=== PATIENT | female | born 1975 | race Caucasian/White ===

== ENCOUNTER 2016-11-11 16:41 | Observation (INO) | payer OTHER ==
[2016-11-11] MEDS ORDERED: NITROGLYCERIN OINT 1 INCH/GM PACKET TOPICAL STA (17:10)
[2016-11-11] MEDS ORDERED: ASPIRIN 81 MG CHEW PO STA (17:10)
[2016-11-11] MEDS ORDERED: LORazepam 2 MG/ML SYRINGE IV STA (17:11)
--- NOTE | 2016-11-11 17:15 | ED ---
Chest Pain HPI - General Chief Complaint: Chest Pain Stated Complaint: Chest Pain Time Seen by Provider: 11/11/16 16:59 Source: patient Mode of arrival: wheelchair Limitations: no limitations - History of Present Illness Initial Comments: This 41-year-old female presents with claims chest pain which is described as a heaviness diffusely throughout her chest. The onset occurred approximate 1 day ago. She has had radiation into her left arm, neck, and jaw. She has had some shortness of breath as well. She denies any known previous cardiac or pulmonary problems. She denies any leg pain or swelling or history of DVT or PE. She denies any possibility of . She had a stress test and May 2016 which was normal per patient. She states that she does feel somewhat anxious although denies a history of anxiety. She is unsure if she is having a panic attack. No other complaints or modifying factors. - Related Data Home Medications Medication Instructions Recorded Confirmed Aspirin [Adult Low Dose Aspirin EC] 81 mg PO DAILY 11/11/16 11/11/16 Ferrous Sulfate [Feosol] 325 mg PO DAILY 11/11/16 11/11/16 Multivitamins, Thera [Multivitamin] 1 tab PO DAILY 11/11/16 11/11/16 Allergies Allergy/AdvReac Type Severity Reaction Status Date / Time No Known Allergies Allergy Verified 11/11/16 17:30 Review of Systems ROS Statement: Those systems with pertinent positive or pertinent negative responses have been documented in the HPI. ROS Other: All systems not noted in ROS Statement are negative. Past Medical History Past Medical History: Osteoarthritis (OA) History of Any Multi-Drug Resistant Organisms: None Reported Past Surgical History: No Surgical Hx Reported Additional Past Surgical History / Comment(s): wisdom teeth extraction 01/24/2016 Past Psychological History: No Psychological Hx Reported Smoking Status: Former smoker Past Alcohol Use History: None Reported Past Drug Use History: None Reported General Exam - General Exam Comments Initial Comments: GENERAL: The patient is well nourished and well hydrated. VITAL SIGNS: Heart rate, blood pressure, respiratory rate reviewed as recorded in nurse's notes. EYES: Pupils are round and reactive. Extraocular movements are intact. No conjunctival / lid redness or swelling. ENT: No external evidence of injury, swelling, or ecchymosis. Airway is patent. Throat is clear. NECK: Nontender. No swelling or evidence of injury. No subcutaneous emphysema. Trachea is midline. No thyroid mass. HEART: Regular rate and rhythm. Good peripheral pulses. LUNGS/CHEST: Breath sounds clear and equal bilaterally. No rales, rhonchi, or wheezes. No ecchymosis, subcutaneous emphysema, or tenderness. ABDOMEN: Abdomen soft without tenderness. No palpable masses or organomegaly. No peritoneal signs. No abdominal wall swelling or ecchymosis. EXTREMITIES: No extremity tenderness. Normal muscle tone and function. No thoracolumbar tenderness. No leg swelling. NEUROLOGIC: Sensation is grossly intact. Cranial nerve exam reveals face is symmetrical, tongue is midline, speech is clear. SKIN: No abrasions or ecchymosis is noted. No induration or masses noted. PSYCHIATRIC: Alert and oriented. Patient appears moderately anxious. Limitations: no limitations Course Vital Signs 11/11/16 11/11/16 11/11/16 16:47 18:52 18:57 Temperature 98 F 98.1 F Pulse Rate 77 96 86 Respiratory 18 18 15 Rate Blood Pressure 148/78 123/67 120/57 O2 Sat by Pulse 100 98 99 Oximetry Chest Pain MDM - MDM The patient was seen and examined. All diagnostics were reviewed. The EKG shows a normal sinus rhythm at a rate of 74. There is some artifact noted. No acute ST-T wave changes noted overall. The MT interval is 150, QRS duration is 94, and QTC intervals 450. The chest x-ray does not show any acute processes. The laboratory is fairly unremarkable. She states that she is feeling improved on recheck. The possibility of acute coronary syndrome certainly is possible and is felt that she benefit from admission to the hospital for further workup and treatment. The case is discussed with Dr. Lynch who is agreeable and patient is admitted to the observation unit for further treatment. Disposition Clinical Impression: Chest pain, Anxiety, Dyspnea, Unstable angina pectoris Disposition: ADMITTED IP TO THIS HOSP Condition: Fair Time of Disposition: 19:40 Decision Date: 11/11/16 Decision Time: 19:40
[2016-11-11 17:28] LABS: Basophils # (A) 0.1 k/uL (0-0.2); Basophils % (A) 1 %; CH 29.6; Eosinophils % (A) 1 %; HCT 40.2 % (34.0-46.0); HDW 2.66; HGB 13.4 gm/dL (11.4-16.0); Luc # (Auto) 0.25; Luc % (Auto) 3; Lymphocytes # (A) 2.1 k/uL (1.0-4.8); Lymphocytes % (A) 25 %; MCH 29.2 pg (25.0-35.0); MCHC 33.3 g/dL (31.0-37.0); MCV 87.4 fL (80.0-100.0); Mean Platelet Volume 6.5; Monocytes # (A) 0.4 k/uL (0-1.0); Monocytes % (A) 4 %; Neutrophils # (A) 5.7 k/uL (1.3-7.7); Neutrophils % (A) 67 %; RDW 13.3 % (11.5-15.5); WBC 8.5 k/uL (3.8-10.6); WBC (Perox) 8.42
[2016-11-11 17:43] LABS: INR 1.1 (<1.1); Prothrombin Time 10.7 sec (9.0-12.0)
[2016-11-11 17:51] LABS: ALT 36 U/L (9-52); AST 21 U/L (14-36); Alkaline Phosphatase 81 U/L (38-126); Anion Gap 12 mmol/L; Blood Urea Nitrogen 9 mg/dL (7-17); Calcium 9.6 mg/dL (8.4-10.2); Carbon Dioxide 23 mmol/L (22-30); Chloride 103 mmol/L (98-107); Creatine Kinase 98 U/L (30-135); Glucose 111 mg/dL (74-99); Magnesium 1.7 mg/dL (1.6-2.3); Non-African American GFR(MDRD) >60 (>60 ml/min/1.73 sqM); Sodium 138 mmol/L (137-145); Total Protein 7.7 g/dL (6.3-8.2)
--- NOTE | 2016-11-11 17:53 | XR ---
EXAMINATION TYPE: XR chest 2V DATE OF EXAM: 11/11/2016 5:46 PM COMPARISON: NONE HISTORY: Chest heaviness and arm pain TECHNIQUE: Frontal and lateral views of the chest are obtained. FINDINGS: Heart and mediastinum are normal. Lungs are clear. Diaphragm is normal. There are chest le ads. Bony thorax is intact. IMPRESSION: No cardiopulmonary disease.
[2016-11-11 18:03] LABS: Creatine Kinase MB 0.5 ng/mL (0.0-2.4); Troponin I <0.012 ng/mL (0.000-0.034)
[2016-11-11] MEDS ORDERED: NITROGLYCERIN SL TABS 0.4 MG TAB SUBLINGUAL PRN (19:40)
[2016-11-11] MEDS ORDERED: HEPARIN SODIUM,PORCINE 5,000 UNIT/ML 1 ML VIAL SQ STA (19:55)
[2016-11-11 21:55] VITALS: BMI 49.6
[2016-11-11] MEDS: METOPROLOL TARTRATE 25 MG TAB PO SCH ×2 (21:59→22:08)
[2016-11-11] MEDS: NITROGLYCERIN OINT 1 INCH/GM PACKET TOPICAL SCH (23:56)
[2016-11-12] MEDS ORDERED: HEPARIN SODIUM,PORCINE 5,000 UNIT/ML 1 ML VIAL SQ SCH
[2016-11-12 00:29] LABS: Creatine Kinase 73 U/L (30-135)
[2016-11-12 00:42] LABS: Creatine Kinase MB 0.4 ng/mL (0.0-2.4); Troponin I <0.012 ng/mL (0.000-0.034)
[2016-11-12] MEDS ORDERED: HEPARIN SODIUM,PORCINE 5,000 UNIT/ML 1 ML VIAL IV PRN (00:49)
[2016-11-12] MEDS ORDERED: HEPARIN SODIUM,PORCINE 5,000 UNIT/ML 1 ML VIAL IV ONE (00:49)
[2016-11-12] MEDS ORDERED: HEPARIN SODIUM,PORCINE/D5W PMX 25,000 UNIT in DEXTROSE/WATER 1 500ML.BAG IV SCH (01:00)
[2016-11-12] MEDS ORDERED: ALPRAZolam 0.25 MG TAB PO STA (02:01)
[2016-11-12] MEDS: NITROGLYCERIN OINT 1 INCH/GM PACKET TOPICAL SCH ×3 (06:44→17:35)
[2016-11-12 07:33] LABS: Cholesterol 178 mg/dL (<200); HDL Cholesterol 46 mg/dL (40-60); Triglycerides 79 mg/dL (<150)
[2016-11-12 07:38] LABS: Creatine Kinase 69 U/L (30-135)
[2016-11-12 07:51] LABS: Creatine Kinase MB 0.3 ng/mL (0.0-2.4); Troponin I <0.012 ng/mL (0.000-0.034)
[2016-11-12] MEDS ORDERED: AMINOPHYLLINE 500 MG/20 ML VIAL IV PRN (08:53)
[2016-11-12] MEDS ORDERED: REGADENOSON 0.4 MG/5 ML SYRINGE IV ONE (09:00)
--- NOTE | 2016-11-12 09:42 | CONS ---
DATE OF CONSULTATION: CHIEF COMPLAINT: Chest pain. Guerita is a 41-year-old lady without any significant past medical history who is under a lot of stress, lost her grandmother a few weeks ago. 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 Initially, she had jaw pain. Subsequently, she had chest pain, then she had left arm pain over the last 2 days. She had persistent symptoms during this hospitalization, but the symptoms have gradually resolved. EKG does not reveal acute ischemic changes. Three sets of cardiac enzymes are negative. At the time of my evaluation, she appears comfortable at rest and is free of symptoms. There is history of smoking, but she quit many years ago and there is family history of premature coronary artery disease. I reviewed her symptomatology, risk factors and talked to her about her treatment options including cardiac catheterization to evaluate her coronary anatomy versus stress testing. Understanding all of the issues, she wishes to go through a stress test and if the stress test is abnormal, she will go for cardiac cath. Past medical history is negative for hypertension, diabetes, dyslipidemia. Medications include iron, aspirin, and multivitamin. ALLERGIES: No known drug allergies. Family history is significant for premature coronary artery disease. SOCIAL HISTORY: She quit smoking many years ago. REVIEW OF SYSTEMS: HEENT is unremarkable. CARDIAC: As described above. RESPIRATORY: Negative. GI: Negative. GENITOURINARY: Negative. ALLERGY/IMMUNOLOGY: Negative. SKIN: Negative. MUSCULOSKELETAL: Significant for arthritis. PSYCHOSOCIAL: Negative. ENDOCRINE: Negative. NEUROLOGICAL: Negative. DERMA: Negative. CONSTITUTIONAL: Negative. ONCOLOGICAL: Negative. HEMATOLOGICAL: Negative. The rest of the system review is not relevant. On exam, comfortable at rest. Vital signs are stable. There is no jugular venous distention. Carotid upstroke is normal. There is no bruit. Chest exam revealed good air entry bilaterally. Heart exam reveals first and second heart sounds. No gallop. Abdomen is soft, nontender. Exam of extremities did not reveal edema. Peripheral pulses are felt. SPRINKLER INSTALLER exam did not reveal focal neurological deficits. Labs have been reviewed. Tropes are negative. ASSESSMENT: 1. Chest pain, rule out coronary artery disease. 2. Morbid obesity. PLAN: Will do a Lexiscan on her. If this is negative, she will go home.
--- NOTE | 2016-11-12 10:51 | P.HPIM ---
History of Present Illness H&P Date: 11/12/16 Chief Complaint: Chest pain This is a 41-year-old female patient of Dr. Jose Mckee with a past medical history of hypertension, osteoarthritis primary generalized. Patient states she had a previous stress test done in about May 2016 at [facility]. She states that she changed doctors and her doctor did not think she needed to be on cholesterol medicine or blood pressure medicine and the stress test was done and she was subsequently taken off these medications. She currently is only on aspirin and a multivitamin daily. She gives history of 2 weeks ago she had knots in the back of her calf and she did get a massage which made it better. On Wednesday she had onset of jaw pain that started when she was sleeping. She states it felt like she was punched in the jaw and it hurt all day. On Wednesday she continued to have jaw pain and then she had pain across her chest mostly starting in the midsternal area and radiating outwards. On her way home from work she developed neck and arm pain while driving. She states she had a little shortness of breath and she does have some pressure in her chest with exertion. She presented to [facility] emergency center. EKG did not show any acute ST-T wave changes. Chest x-ray showed no acute cardiopulmonary disease. Lab work all within normal limits except for random blood sugar of 111. Troponins of been negative on 3 draws. Triglyceride 79, cholesterol 178, LDL 116 and HDL 46. Patient was started on heparin drip, full strength aspirin , Lopressor and nitro bid and placed on selective care as an overflow for observation unit. She has been seen by valet parker and heparin drip has been discontinued and she is scheduled for stress echo today. Echocardiogram reveals EF 55-60%, trace mitral regurgitation, trace tricuspid regurgitation, moderate concentric left hypertrophy. Stress Cardiolite shows limited due to artifact. Could not exclude small area of reversible stress-induced ischemia in the inferior lateral myocardium. Patient is scheduled for heart catheterization tomorrow. Review of Systems All systems: negative Constitutional: Denies chills, Denies fever Eyes: denies blurred vision, denies pain Ears, nose, mouth and throat: Denies headache, Denies sore throat Cardiovascular: Reports chest pain, Reports dyspnea on exertion, Denies shortness of breath Respiratory: Denies cough Gastrointestinal: Denies abdominal pain, Denies diarrhea, Denies nausea, Denies vomiting Genitourinary: Denies dysuria, Denies hematuria Musculoskeletal: Denies myalgias Integumentary: Denies pruritus, Denies rash Neurological: Denies numbness, Denies weakness Psychiatric: Denies anxiety, Denies depression Endocrine: Denies fatigue, Denies weight change Past Medical History Past Medical History: Osteoarthritis (OA) History of Any Multi-Drug Resistant Organisms: None Reported Past Surgical History: No Surgical Hx Reported Additional Past Surgical History / Comment(s): wisdom teeth extraction 01/24/2016 Past Anesthesia/Blood Transfusion Reactions: No Reported Reaction Past Psychological History: No Psychological Hx Reported Smoking Status: Former smoker Past Alcohol Use History: None Reported Additional Past Alcohol Use History / Comment(s): Patient was a smoker of 2 packs per day for 20 years and quit 5 years ago. She denies any medical marijuana, marijuana or street drug use. She works as a teacher. Past Drug Use History: None Reported - Past Family History Father Family Medical History: Hyperlipidemia, Hypertension Additional Family Medical History / Comment(s): Father is alive at age 60 with history of angina. Mother Family Medical History: Hyperlipidemia, Hypertension Additional Family Medical History / Comment(s): Mother is alive at age 60 with history of hypertension, hyperlipidemia. Maternal grandmother at age 56 from a massive coronary. Brother(s) Additional Family Medical History / Comment(s): Patient has 2 brothers and one has history of hyperlipidemia, hypertension and TIA. Patient does not have any sisters. Son(s) Additional Family Medical History / Comment(s): Patient has 7 children, 2 daughters and 5 sons. One son has asthma. 2 children have ADHD. Medications and Allergies Home Medications Medication Instructions Recorded Confirmed Type Aspirin [Adult Low Dose Aspirin EC] 81 mg PO DAILY 11/11/16 11/11/16 History Ferrous Sulfate [Feosol] 325 mg PO DAILY 11/11/16 11/11/16 History Multivitamins, Thera [Multivitamin] 1 tab PO DAILY 11/11/16 11/11/16 History Allergies Allergy/AdvReac Type Severity Reaction Status Date / Time No Known Allergies Allergy Verified 11/11/16 17:30 Physical Exam Vitals: Vital Signs Temp Pulse Pulse Resp BP BP Pulse Ox 11/12/16 04:00 97.1 F L 81 20 134/70 99 11/12/16 01:50 76 22 125/70 97 11/12/16 00:35 78 106/57 11/12/16 00:32 79 110/58 11/12/16 00:30 76 20 118/67 99 11/11/16 21:31 96.9 F L 81 18 118/66 97 11/11/16 20:33 84 16 119/63 97 Intake and Output 11/11/16 11/12/16 11/12/16 22:59 06:59 14:59 Intake Total 240 Output Total 500 Balance -260 Intake: Oral 240 Output: Urine 500 Other: Weight 127.006 kg 127.4 kg Gen: This is a morbidly obese 31-year-old female. She is sitting up in bed and appears to be in no acute distress. HEENT: Head is atraumatic, normocephalic. Pupils equal, round. Sclerae is anicteric. NECK: Supple. No JVD. No lymphadenopathy. No thyromegaly. LUNGS: Clear to auscultation. No wheezes or rhonchi. No intercostal retractions. HEART: Regular rate and rhythm. No murmur. ABDOMEN: Morbidly obese. Soft. Bowel sounds are present. No masses. No tenderness. EXTREMITIES: No pedal edema. No calf tenderness. NEUROLOGICAL: Patient is awake, alert and oriented x3. Cranial nerves 2 through 12 are grossly intact. Results CBC & Chem 7: 11/11/16 17:20 11/11/16 17:20 Labs: Abnormal Lab Results - Last 24 Hours (Table) 11/12/16 11/12/16 Range/Units 06:25 06:25 APTT 34.8 H (22.0-30.0) sec LDL Cholesterol, Calc 116 H (0-99) mg/dL Thrombosis Risk Factor Assmnt - DVT/VTE Prophylaxis DVT/VTE Prophylaxis: Pharmacologic Prophylaxis ordered - Choose All That Apply Any of the Below Risk Factors Present?: Yes Each Factor Represents 1 point: Age 41-60 years, Obesity (BMI >25) Thrombosis Risk Factor Assessment Total Risk Factor Score: 2 Thrombosis Risk Factor Assessment Level: Low Risk Assessment and Plan Plan: 1. Chest pain with negative troponins and no ST-T wave changes on EKG. abnormal stress test. Patient scheduled for heart catheterization tomorrow. Continue aspirin 325 mg daily, Lipitor 2. Right TMJ. Patient instructed to take nonsteroidal anti-inflammatories and obtain bite block. 3. Primary generalized osteoarthritis. 4. Patient was previously on medication for hypertension and hyperlipidemia which were discontinued by her primary care physician. 5. Remote history of tobacco use. Patient quit 5 years ago. Patient is observation status. Discharge plan: Return home Impression and plan of care have been directed as dictated by the signing physician. Adri Post nurse practitioner acting as scribe for signing physician. Cc: Dr. Jose Mckee Time with Patient: Greater than 30
--- NOTE | 2016-11-12 11:19 | ECHOF ---
Referral Reason:cp MEASUREMENTS -------- HEIGHT: 160.0 cm WEIGHT: 127.0 kg BP: 134/70 IVSd: 1.3 cm (0.6 - 1.1) LVIDd: 4.0 cm (3.9 - 5.3) LVPWd: 1.5 cm (0.6 - 1.1) IVSs: 1.7 cm LVIDs: 2.7 cm LVPWs: 1.6 cm Ao Diam: 3.1 cm (2.0 - 3.7) AV Cusp: 2.3 cm (1.5 - 2.6) LA Diam: 3.6 cm (2.7 - 3.8) MV EXCURSION: 14.924 mm (> 18.000) MV EF SLOPE: 108 mm/s (70 - 150) EPSS: 1.0 cm MV E Remi: 0.93 m/s MV DecT: 154 ms MV A Remi: 0.56 m/s MV E/A Ratio: 1.65 RAP: 5.00 mmHg RVSP: 12.70 mmHg FINDINGS -------- Sinus rhythm. This was a technically adequate study. There is moderate concentric left ventricular hypertrophy. Overall left ventricular systolic function is normal with, an EF between 55 - 60 %. The right ventricle is normal in size and function. The left atrium is normal in size. The right atrium is normal in size. The aortic valve was not well visualized. The mitral valve leaflets are mildly thickened. There is trace mitral regurgitation. Trace tricuspid regurgitation present. The right ventricular systolic pressure, as measured by Doppler, is 12.70mmHg. Pulmonic valve appears structurally normal. The aortic root size is normal. The pericardium is normal. CONCLUSIONS -------- 1. Sinus rhythm. 2. There is trace mitral regurgitation. 3. Trace tricuspid regurgitation present. 4. The right ventricular systolic pressure, as measured by Doppler, is 12.70mmHg. 5. Pulmonic valve appears structurally normal. 6. The aortic root size is normal. 7. The pericardium is normal. 8. This was a technically adequate study. 9. There is moderate concentric left ventricular hypertrophy. 10. Overall left ventricular systolic function is normal with, an EF between 55 - 60 %. 11. The right ventricle is normal in size and function. 12. The left atrium is normal in size. 13. The right atrium is normal in size. 14. The aortic valve was not well visualized. 15. The mitral valve leaflets are mildly thickened. HISTOLOGIC TECHNICIAN: Naomi Heath RDCS
--- NOTE | 2016-11-12 11:20 | EST ---
DATE OF SERVICE: 11/11/2016 AGE: 41Y SEX: F HT: 5'8" WT: 280 lbs. Lexiscan Cardiolite Stress Test *Heart Rate Blood Pressure *Rest: 88 Rest: 162/95 * *Max. Achieved: 120 Maximum BP: 146/84 85% PMHR: - 100% PMHR: - *METS: - INDICATIONS: Chest pain, dyspnea, angina. MEDICATIONS: Multivitamin, Feosol, aspirin. STRESS DATA: Pretesting physical examination showed a heart rate of 88, pressure is 162/95 mmHg. Baseline EKG shows sinus mechanism; 0.4 mg of Lexiscan was administered to the patient over 15 seconds per protocol. The max heart rate was 120 beats per minute and maximum pressure was 146/84 mmHg. Clinically, the patient did have chest discomfort. The EKG did not show any significant ST or T-wave abnormalities consistent with ischemia. CONCLUSION: 1. Nondiagnostic electrocardiogram stress testing in response to exercise. 2. Please follow up on the Cardiolite portion on a separate report from the Radiology Department.
--- NOTE | 2016-11-12 12:17 | NM ---
EXAMINATION TYPE: NM stress lexiscan cardiolite DATE OF EXAM: 11/12/2016 11:45 AM COMPARISON: NONE HISTORY: Precordial Chest pain TECHNIQUE: After the intravenous administration of 10.4 mCi Tc 99m Sestamibi - Cardiolite resting SP ECT images acquired 41 minutes post injection. The patient received 0.4mg Lexiscan, 27.5 mCi Tc 99m Sestamibi - Stress images obtained [address] injection FINDINGS: Review of stress and rest SPECT images demonstrates artifact which limits exam. Could not exclude a area of stress-induced reversibility involving the inferior lateral myocardium. Gated analysis shows normal wall motion with an estimated left ventricular ejection fraction of 56 %. IMPRESSION: Limited exam due to artifact. Could not exclude an area of small reversible stress-induced ischemia i nferolateral myocardium correlate clinically.
[2016-11-12] MEDS ORDERED: NITROGLYCERIN SL TABS 0.4 MG TAB SUBLINGUAL PRN (13:59)
[2016-11-12] MEDS ORDERED: ALPRAZolam 0.5 MG TAB PO PRN (13:59)
[2016-11-12] MEDS ORDERED: ALPRAZolam 0.25 MG TAB PO PRN (13:59)
[2016-11-12] MEDS ORDERED: ASPIRIN 325 MG TAB PO STA (13:59)
[2016-11-12] MEDS ORDERED: SODIUM CHLORIDE 0.9% 1,000 ML in EMPTY BAG 1 BAG IV ONE (13:59)
[2016-11-12] MEDS ORDERED: ATORVASTATIN 80 MG TAB PO STA (13:59)
[2016-11-12] MEDS: FERROUS SULFATE 325 MG TAB PO SCH (14:56)
[2016-11-12] MEDS: MULTIVITAMINS, THERA 1 EACH TAB PO SCH (14:56)
[2016-11-12] MEDS: ASPIRIN 325 MG TAB PO SCH (14:57)
[2016-11-12] MEDS: METOPROLOL TARTRATE 25 MG TAB PO SCH (18:46)
[2016-11-13] MEDS ORDERED: HYDROcodone/APAP 5-325MG 1 EACH TAB PO PRN (00:12)
[2016-11-13] MEDS: ASPIRIN 325 MG TAB PO SCH (07:04)
[2016-11-13] MEDS: NITROGLYCERIN OINT 1 INCH/GM PACKET TOPICAL SCH ×4 (07:04→17:14)
[2016-11-13] MEDS ORDERED: MIDAZOLAM 2 MG/2 ML VIAL ONE (09:50)
[2016-11-13] MEDS: MIDAZOLAM 2 MG/2 ML VIAL IV ONE ×2 (09:57→10:55)
[2016-11-13] MEDS ORDERED: fentaNYL (PF) 50 MCG/ML 2 ML AMP ONE (10:36)
[2016-11-13] MEDS: fentaNYL (PF) 50 MCG/ML 2 ML AMP IV ONE ×2 (10:47→11:09)
[2016-11-13] MEDS ORDERED: LIDOCAINE 2% INJ 20 MG/ML SQ ONE (10:58)
[2016-11-13] MEDS ORDERED: RX INFO: IV CONTRAST WAS GIVEN 1 EACH MISC MISCELLANE PRN (11:20)
[2016-11-13] MEDS ORDERED: IOHEXOL 350 MG/ML 100 ML BOTTLE INTRATHECA ONE (11:29)
[2016-11-13] MEDS ORDERED: SODIUM CHLORIDE 0.9% 1,000 ML IV SCH (11:30)
--- NOTE | 2016-11-13 11:35 | P.DS ---
Providers Date of admission: 11/11/16 19:40 Expected date of discharge: 11/13/16 Attending physician: Cherelle Lynch Primary care physician: Jose Mckee [facility] Course: This is a 41-year-old female patient of Dr. Jose Mckee with a past medical history of hypertension, osteoarthritis primary generalized. Patient states she had a previous stress test done in about May 2016 at [facility]. She states that she changed doctors and her doctor did not think she needed to be on cholesterol medicine or blood pressure medicine and the stress test was done and she was subsequently taken off these medications. She currently is only on aspirin and a multivitamin daily. She gives history of 2 weeks ago she had knots in the back of her calf and she did get a massage which made it better. On Wednesday she had onset of jaw pain that started when she was sleeping. She states it felt like she was punched in the jaw and it hurt all day. On Wednesday she continued to have jaw pain and then she had pain across her chest mostly starting in the midsternal area and radiating outwards. On her way home from work she developed neck and arm pain while driving. She states she had a little shortness of breath and she does have some pressure in her chest with exertion. She presented to [facility] emergency center. EKG did not show any acute ST-T wave changes. Chest x-ray showed no acute cardiopulmonary disease. Lab work all within normal limits except for random blood sugar of 111. Troponins of been negative on 3 draws. Triglyceride 79, cholesterol 178, LDL 116 and HDL 46. Patient was started on heparin drip, full strength aspirin , Lopressor and nitro bid and placed on selective care as an overflow for observation unit. She has been seen by canal equipment mechanic and heparin drip has been discontinued and she is scheduled for stress echo today. Echocardiogram reveals EF 55-60%, trace mitral regurgitation, trace tricuspid regurgitation, moderate concentric left hypertrophy. Stress Cardiolite shows limited due to artifact. Could not exclude small area of reversible stress-induced ischemia in the inferior lateral myocardium. Patient is scheduled for heart catheterization tomorrow. 11/13: Patient underwent heart catheterization which did not show any significant blockages. Cardiology has cleared her for discharge. Patient will be discharged home today in stable condition. Discharge diagnoses: 1. Chest pain with negative troponins and no ST-T wave changes on EKG. abnormal stress test. Heart catheterization is negative. Patient may need gallbladder ultrasound as an inpatient as she did develop the pain after eating macaroni and cheese the night before. 2. Right TMJ. Patient instructed to take nonsteroidal anti-inflammatories and obtain bite block. 3. Primary generalized osteoarthritis. 4. Patient was previously on medication for hypertension and hyperlipidemia which were discontinued by her primary care physician. 5. Remote history of tobacco use. Patient quit 5 years ago. Patient is observation status. Discharge plan: Return home Impression and plan of care have been directed as dictated by the signing physician. Adri Post nurse practitioner acting as scribe for signing physician. Cc: Dr. Jose Mckee Patient Condition at Discharge: Good Plan - Discharge Summary Discharge Medication List Aspirin [Adult Low Dose Aspirin EC] 81 mg PO DAILY 11/11/16 [History] Ferrous Sulfate [Iron (65 MG Elemental)] 325 mg PO DAILY 11/11/16 [History] Multivitamins, Thera [Multivitamin] 1 tab PO DAILY 11/11/16 [History] Follow up Appointment(s)/Referral(s): Jose Mckee MD [Primary Care Provider] - 1 Week Hamilton Taylor MD [STAFF PHYSICIAN] - 1 Week Discharge Disposition: HOME SELF-CARE
[2016-11-13 11:50] VITALS: RESP 16
--- NOTE | 2016-11-13 11:58 | CC ---
DATE OF SERVICE: INDICATION: Chest pain with abnormal stress test. Guerita is a 61-year-old lady who came to hospital with chest pain, had a stress test that revealed questionable areas of ischemia due to which she was advised to undergo cardiac catheterization. She had been explained of risks, benefits, and alternatives, understood and accepted. PROCEDURE NOTE: After obtaining informed consent, left heart catheterization and coronary angiogram are performed via the right femoral artery using standard Madalyn catheters. Patient tolerated the procedure well without any obvious immediate complications. A femoral angiogram was performed and Angio-Seal was deployed for hemostasis. FINDINGS: 1. HEMODYNAMICS: Left ventricular end-diastolic pressure is 12 to 14 mm. There is no significant gradient across the aortic valve. 2. LEFT VENTRICULOGRAM: Left ventriculogram is not performed. 3. ANGIOGRAPHIC DATA: Left main coronary artery: Left main coronary artery is a normal-sized vessel and is free of stenosis. It divides into left anterior descending coronary artery and circumflex coronary artery. LAD and its branches, circumflex coronary artery and its branches are free of significant stenosis. Right coronary artery is a large dominant vessel and is free of significant stenosis. CONCLUSIONS: 1. Normal coronary arteries. 2. Normal left ventricular end-diastolic pressures. 3. Patient's stress test is probably a false positive stress test and her management is going to be in the form of risk factor modification.
[2016-11-13] MEDS: MULTIVITAMINS, THERA 1 EACH TAB PO SCH (12:48)
[2016-11-13] MEDS: FERROUS SULFATE 325 MG TAB PO SCH (12:48)
[2016-11-13 16:05] VITALS: BP 128/76; PULSE 78; TEMP 97.7
== END 2016-11-14 06:23 | disposition home or self-care (01) ==
LOC: EC 16:41 → 6SEL 19:40
PROVIDERS: ADMIT Family Medicine; ATTEND Family Medicine
DX: R07.89 Other chest pain (principal); R06.02 Shortness of breath; F41.9 Anxiety disorder, unspecified; M79.602 Pain in left arm; M54.2 Cervicalgia; M26.601 Right temporomandibular joint disorder, unspecified; M15.0 Primary generalized (osteo)arthritis; E66.01 Morbid (severe) obesity due to excess calories; Z68.42 Body mass index [BMI] 45.0-49.9, adult; Z82.49 Family history of ischemic heart disease and other diseases of the circulatory system; Z79.82 Long term (current) use of aspirin; Z79.899 Other long term (current) drug therapy; Z87.891 Personal history of nicotine dependence; R94.39 Abnormal result of other cardiovascular function study
CPT/HCPCS: 96374; 96372; 99285; 36415; 93005; 93017; 93306; 93458; 85379; 83880; 80061; 80053; 82550 ×2; 82553 ×2; 83735; 84484 ×2; 85025; 85610; 85730 ×2; 84703; 71020; 78452; G0378 ×4; C1760; C1894; C1769; A9500; J2001; J2250; J2060; J1644 ×3; Q9967; J3010; J2785; 96375

== ENCOUNTER → 2017-11-30 | Outpatient (CLI) | payer OTHER ==
--- NOTE | 2017-12-01 07:21 | US ---
EXAMINATION TYPE: US transvaginal DATE OF EXAM: 11/30/2017 COMPARISON: NONE CLINICAL HISTORY: Z01.441 Menorrhagia. Intermittent pelvic pain TECHNIQUE: Transvaginal (TV) Date of LMP: 11/08/17 EXAM MEASUREMENTS: Uterus: 8.6 x 5.7 x 6.9 cm Endometrial Stripe: 1.1 cm Right Ovary: 2.4 x 1.2 x 1.2 cm Left Ovary: 3.4 x 2.5 x 2.8 cm 1. Uterus: Retroverted Multiple Nabothian cysts 2. Endometrium: hypoechoic vascular area = 0.6 x 0.4 x 0.6cm 3. Right Ovary: follicles noted 4. Left Ovary: cystic area = 2.2 x 2.3 x 2.1cm 5. Bilateral Adnexa: appears wnl 6. Posterior cul-de-sac: wnl IMPRESSION: 1. Hypoechoic lesion within the endometrium. Polyp is not excluded. 2. Probable functional ovarian cyst left ovary. Small follicles right ovary.
== END | disposition home or self-care (01) ==
LOC: RADUSWWP 16:06
PROVIDERS: ATTEND Obstetrics & Gynecology
DX: N85.8 Other specified noninflammatory disorders of uterus (principal)
CPT/HCPCS: 76830

== ENCOUNTER → 2017-12-03 | Outpatient (CLI) | payer OTHER ==
--- NOTE | 2017-12-06 07:33 | MM ---
Reason for exam: screening (asymptomatic). Baseline mammogram. Physical Findings: Nurse did not find any significant physical abnormalities on exam. MG Screening Mammo w CAD Bilateral CC and MLO view(s) were taken. There are scattered fibroglandular densities. Finding: There are typically benign round, grouped/clustered calcifications in the right breast. There is no discrete abnormality. Benign appearing axillary lymph nodes. These results were verbally communicated with the patient and result sheet given to the patient on 12/03/17. ASSESSMENT: Benign, BI-RAD 2 RECOMMENDATION: Routine screening mammogram of both breasts in 1 year.
== END | disposition home or self-care (01) ==
LOC: RADMAMWWP 15:42
PROVIDERS: ATTEND Obstetrics & Gynecology
DX: Z12.31 Encounter for screening mammogram for malignant neoplasm of breast (principal)
CPT/HCPCS: 77067

== ENCOUNTER → 2019-03-27 | Outpatient (CLI) | payer OTHER ==
--- NOTE | 2019-03-27 13:36 | US ---
EXAMINATION TYPE: US transvaginal DATE OF EXAM: 03/27/2019 COMPARISON: 11/30/2017 ultrasound CLINICAL HISTORY: R10.2 Pelvic Pain x 18 years per patient; ; endometrial ablation one year ago TECHNIQUE: Transvaginal (TV). Transvaginal sonographic images were medically necessary per physician 's order. Date of LMP: one year ago EXAM MEASUREMENTS: Uterus: 7.7 x 5.4 x 2.0 cm Endometrial Stripe: 0.7 cm Right Ovary: 1.3 x 1.3 x 1.8 cm Left Ovary: 4.5 x 2.5 x 2.3 cm large body habitus 1. Uterus: anteflexed, multiple small Nabothian cysts in cervix with largest measuring 0.7 x 0.7 x 0 .5cm 2. Endometrium: wnl 3. Right Ovary: wnl 4. Left Ovary: prominent for size secondary to multiple follicles with largest dominant follicle rajendra suring 1.2 x 1.5 x 1.5cm Spectral, color and waveform doppler imaging shows good arterial and venous flow within the ovaries ; there is no evidence for ovarian torsion. 5. Bilateral Adnexa: wnl 6. Posterior cul-de-sac: wnl IMPRESSION: 1. Endometrium is prominent given the history of endometrial ablation now measuring up to 7 mm. 2. Numerous follicles within the left ovary with a dominant follicle measuring up to 1.5 cm, likely p hysiologic. These have decreased in size from the prior exam of 11/23/1717.
== END | disposition home or self-care (01) ==
LOC: RADUSWWP 11:38
PROVIDERS: ATTEND Obstetrics & Gynecology
DX: R10.2 Pelvic and perineal pain (principal); Z98.891 History of uterine scar from previous surgery
CPT/HCPCS: 76830

== ENCOUNTER → 2023-04-03 | Outpatient (CLI) | payer BC ==
[2023-04-03 13:32] LABS: Basophils # (A) 0.07 X 10*3/uL (0.00-0.10); Basophils % (A) 1.1 %; Eosinophils # (A) 0.17 X 10*3/uL (0.04-0.35); Eosinophils % (A) 2.7 %; HCT 41.5 % (37.2-46.3); HGB 13.9 d/dL (12.0-15.0); Lymphocytes # (A) 2.01 X 10*3/uL (0.90-5.00); Lymphocytes % (A) 31.9 %; MCH 30.7 pg (27.0-32.0); MCHC 33.5 d/dL (32.0-37.0); MCV 91.6 FL (80.0-97.0); Mean Platelet Volume 10.1 FL (9.5-12.2); Monocytes # (A) 0.48 X 10*3/uL (0.20-1.00); Monocytes % (A) 7.6 %; NRBC Per 100 WBC 0 X 10*3/uL (0.00-0.01); Neutrophils # (A) 3.56 X 10*3/uL (1.80-7.70); Neutrophils % (A) 56.4 %; Platelet Count 258 X 10*3/uL (140-440); RBC 4.53 X 10*6/uL (4.10-5.20); RDW 12.7 % (11.5-14.5); WBC 6.31 X 10*3/uL (4.50-10.00)
[2023-04-03 13:46] LABS: ALT 20 U/L (8-44); AST 17 U/L (13-35); Albumin 4.7 d/dL (3.8-4.9); Albumin/Globulin Ratio 1.88 Ratio (1.60-3.17); Alkaline Phosphatase 65 U/L (41-126); Blood Urea Nitrogen 10.2 mg/dL (9.0-27.0); Calcium 9.4 mg/dL (8.7-10.3); Carbon Dioxide 24.7 mmol/L (21.6-31.8); Chloride 100 mmol/L (96-109); Chol/HDL Ratio 4.29 Ratio; Globulin 2.5 d/dL (1.6-3.3); Glucose 100 mg/dL (70-110); LDL Cholesterol,Calculated 161.5 mg/dL (0.0-131.0); Magnesium 1.8 mg/dL (1.5-2.4); Potassium 4.3 mmol/L (3.5-5.5); Sodium 139 mmol/L (135-145); T4, Free (Free Thyroxine) 1.28 ng/dL (0.80-1.80); Total Bilirubin 0.7 mg/dL (0.3-1.2); Total Protein 7.2 d/dL (6.2-8.2)
== END | disposition home or self-care (01) ==
LOC: LABWHC1 07:59
PROVIDERS: ATTEND Family Medicine
DX: Z00.00 Encounter for general adult medical examination without abnormal findings (principal); R00.2 Palpitations; R42 Dizziness and giddiness
CPT/HCPCS: 36415; 80053; 80061; 81025; 83036; 83735; 84439; 84443; 85025

== ENCOUNTER → 2023-06-05 | Outpatient (CLI) | payer BC ==
[2023-06-05 13:54] LABS: Blood Urea Nitrogen 9.4 mg/dL (9.0-27.0); Calcium 9.2 mg/dL (8.7-10.3); Carbon Dioxide 26.9 mmol/L (21.6-31.8); Chloride 105 mmol/L (96-109); Glucose 105 mg/dL (70-110); Magnesium 1.9 mg/dL (1.5-2.4); Potassium 4.5 mmol/L (3.5-5.5); Sodium 142 mmol/L (135-145)
== END | disposition home or self-care (01) ==
LOC: LABWHC1 08:07
PROVIDERS: ATTEND Internal Medicine Cardiovascular Disease
DX: I10 Essential (primary) hypertension (principal); R00.2 Palpitations; R60.0 Localized edema
CPT/HCPCS: 36415; 80048; 83735

== ENCOUNTER → 2023-07-28 | Outpatient (CLI) | payer BC ==
--- NOTE | 2023-07-28 17:48 | XR ---
EXAMINATION TYPE: XR knee limited LT DATE OF EXAM: 07/28/2023 5:08 PM INDICATION: Patient age:Female; 47 years old; Reason for study: [id number] PAIN IN LEFT KNEE; [facility]. COMPARISON: None. TECHNIQUE: The Left knee(s) was examined in frontal and lateral projections. FINDINGS: No evidence of any acute osseous pathology, soft tissue swelling, or joint effusion is no joel. IMPRESSION: No acute osseous pathology.
[2023-07-29 03:26] LABS: ALT 20 U/L (8-44); AST 17 U/L (13-35); Albumin 4.5 d/dL (3.8-4.9); Albumin/Globulin Ratio 1.88 Ratio (1.60-3.17); Alkaline Phosphatase 68 U/L (41-126); Blood Urea Nitrogen 9.6 mg/dL (9.0-27.0); Calcium 9.7 mg/dL (8.7-10.3); Carbon Dioxide 27.4 mmol/L (21.6-31.8); Chloride 101 mmol/L (96-109); Globulin 2.4 d/dL (1.6-3.3); Glucose 119 mg/dL (70-110); Potassium 4.2 mmol/L (3.5-5.5); Sodium 140 mmol/L (135-145); T4, Free (Free Thyroxine) 1.11 ng/dL (0.80-1.80); Total Bilirubin 0.5 mg/dL (0.3-1.2); Total Protein 6.9 d/dL (6.2-8.2)
[2023-07-29 03:35] LABS: Luteinizing Hormone 9.1 mIU/mL
[2023-07-29 06:20] LABS: Basophils # (A) 0.07 X 10*3/uL (0.00-0.10); Basophils % (A) 0.9 %; Eosinophils # (A) 0.14 X 10*3/uL (0.04-0.35); Eosinophils % (A) 1.8 %; HCT 40.5 % (37.2-46.3); HGB 13.3 d/dL (12.0-15.0); Lymphocytes # (A) 2.12 X 10*3/uL (0.90-5.00); Lymphocytes % (A) 27.8 %; MCH 30.9 pg (27.0-32.0); MCHC 32.8 d/dL (32.0-37.0); MCV 94.2 FL (80.0-97.0); Mean Platelet Volume 9.9 FL (9.5-12.2); Monocytes # (A) 0.41 X 10*3/uL (0.20-1.00); Monocytes % (A) 5.4 %; NRBC Per 100 WBC 0 X 10*3/uL (0.00-0.01); Neutrophils # (A) 4.87 X 10*3/uL (1.80-7.70); Neutrophils % (A) 63.8 %; Platelet Count 259 X 10*3/uL (140-440); RDW 12.9 % (11.5-14.5); WBC 7.63 X 10*3/uL (4.50-10.00)
== END | disposition home or self-care (01) ==
LOC: LABWHC1 16:17
PROVIDERS: ATTEND Student in an Organized Health Care Education/Training Program
DX: F41.1 Generalized anxiety disorder (principal); M25.562 Pain in left knee; M79.89 Other specified soft tissue disorders; R73.03 Prediabetes
CPT/HCPCS: 36415; 80053; 82672; 83001; 83002; 83036; 84439; 84443; 85025; 85379

== ENCOUNTER → 2023-07-31 | Outpatient (CLI) | payer BC ==
[2023-07-31 14:02] LABS: Chol/HDL Ratio 3.86 Ratio; LDL Cholesterol,Calculated 142.4 mg/dL (0.0-131.0)
== END | disposition home or self-care (01) ==
LOC: LABWHC1 08:12
PROVIDERS: ATTEND Student in an Organized Health Care Education/Training Program
DX: R73.03 Prediabetes (principal)
CPT/HCPCS: 36415; 80061

== ENCOUNTER → 2023-11-22 | Outpatient (CLI) | payer BC ==
--- NOTE | 2023-11-22 08:41 | XR ---
EXAMINATION TYPE: XR foot complete RT DATE OF EXAM: 11/22/2023 COMPARISON: NONE HISTORY: Pain TECHNIQUE: Three views are submitted. FINDINGS: Joint spaces are preserved. Small plantar calcaneal spur. Tiny linear lucency base fifth metatarsal c ould be chronic correlate with point tenderness. Hypertrophic arthropathy first MTP. IMPRESSION: 1. Question linear lucency base fifth metatarsal correlate with point tenderness to exclude hairline fracture. 2. Moderate-sized plantar calcaneal spur.
--- NOTE | 2023-11-22 08:43 | XR ---
EXAMINATION TYPE: XR ankle complete RT DATE OF EXAM: 11/22/2023 8:32 AM CLINICAL INDICATION:Female, 48 years old with history of M25.571 PAIN; [facility] COMPARISON: None TECHNIQUE: XR ankle complete RT; ankle is imaged in frontal, lateral and oblique projections. FINDINGS: There is no evidence of acute osseous pathology. The joint spaces are well-preserved without evidenc e of subluxation or dislocation. Kager's fat pad is intact. Mild soft tissue swelling around the ankl e. No radiopaque foreign bodies are identified. Calcaneal plantar spurring. There is soft tissue swel ling around the ankle. IMPRESSION: 1. No evidence of acute fracture. 2. Calcaneal plantar spurring. 3. Soft tissue swelling around the ankle. Correlate for ligamentous injury.
[2023-11-22 14:46] LABS: Basophils # (A) 0.06 X 10*3/uL (0.00-0.10); Eosinophils # (A) 0.15 X 10*3/uL (0.04-0.35); Eosinophils % (A) 2.6 %; HCT 42.8 % (37.2-46.3); HGB 14.3 g/dL (12.0-15.0); Lymphocytes # (A) 2.14 X 10*3/uL (0.90-5.00); Lymphocytes % (A) 36.5 %; MCH 30.2 pg (27.0-32.0); MCHC 33.4 g/dL (32.0-37.0); MCV 90.3 FL (80.0-97.0); Mean Platelet Volume 9.9 FL (9.5-12.2); Monocytes # (A) 0.43 X 10*3/uL (0.20-1.00); Monocytes % (A) 7.3 %; NRBC Per 100 WBC 0 X 10*3/uL (0.00-0.01); Neutrophils # (A) 3.08 X 10*3/uL (1.80-7.70); Neutrophils % (A) 52.4 %; Platelet Count 265 X 10*3/uL (140-440); RBC 4.74 X 10*6/uL (4.10-5.20); RDW 12.1 % (11.5-14.5); WBC 5.87 X 10*3/uL (4.50-10.00)
[2023-11-22 15:42] LABS: Erythrocyte Sedimentation Rate 23 mm/Hr (0-20)
[2023-11-22 15:43] LABS: LDL Cholesterol,Calculated 163.4 mg/dL (0.0-131.0); Rheumatoid Factor, Qnt <15 IU/mL (0-15); Uric Acid 4.4 mg/dL (2.9-7.7)
[2023-11-22 15:44] LABS: ALT 16 U/L (8-44); AST 13 U/L (13-35); Albumin 4.7 g/dL (3.8-4.9); Albumin/Globulin Ratio 1.81 Ratio (1.60-3.17); Alkaline Phosphatase 67 U/L (41-126); BUN/Creat Ratio 24.83 Ratio (12.00-20.00); Blood Urea Nitrogen 14.9 mg/dL (9.0-27.0); Calcium 9.9 mg/dL (8.7-10.3); Carbon Dioxide 26.5 mmol/L (21.6-31.8); Chloride 99 mmol/L (96-109); Globulin 2.6 g/dL (1.6-3.3); Glucose 100 mg/dL (70-110); Potassium 4.6 mmol/L (3.5-5.5); Sodium 137 mmol/L (135-145); T4, Free (Free Thyroxine) 1.26 ng/dL (0.80-1.80); Total Bilirubin 0.5 mg/dL (0.3-1.2); Total Protein 7.3 g/dL (6.2-8.2)
== END | disposition home or self-care (01) ==
LOC: LABWHC1 07:57
PROVIDERS: ATTEND Student in an Organized Health Care Education/Training Program
DX: M25.471 Effusion, right ankle (principal); M77.31 Calcaneal spur, right foot; E66.9 Obesity, unspecified
CPT/HCPCS: 36415; 80053; 80061; 83036; 84439; 84443; 84550; 85025; 85652; 86140; 86431

== ENCOUNTER → 2023-12-13 | Outpatient (CLI) | payer BC ==
--- NOTE | 2023-12-13 09:13 | XR ---
EXAMINATION TYPE: XR foot complete RT DATE OF EXAM: 12/13/2023 8:56 AM CLINICAL INDICATION:Female, 48 years old with history of M79.671 PAIN IN RT FOOT; COMPARISON: 11/22/2023 TECHNIQUE: XR foot complete RT examined in the AP, oblique, and lateral projections. FINDINGS: No evidence of any acute osseous pathology. No evidence of soft tissue swelling. Joints are preserve d. Calcaneal plantar spurring is present. IMPRESSION: No evidence of acute fracture. No evidence for significant soft tissue edema. Calcaneal plantar spurring.
== END | disposition home or self-care (01) ==
LOC: LABWHC1 08:04
PROVIDERS: ATTEND Student in an Organized Health Care Education/Training Program
DX: R70.0 Elevated erythrocyte sedimentation rate (principal); M79.671 Pain in right foot
CPT/HCPCS: 36415; 85652; 86140

== ENCOUNTER → 2024-01-03 | Outpatient (CLI) | payer BC ==
--- NOTE | 2024-01-03 09:50 | US ---
EXAMINATION TYPE: US extremity nonvasculr ltd RT DATE OF EXAM: 01/03/2024 COMPARISON: NONE CLINICAL INDICATION: Female, 48 years old with history of M79.89 OTHER SPECIFIED SOFT TISSUE DISORDER S R22.41 SWELLING; Right lower leg swelling Technique: Grayscale imaging of the right popliteal fossa. FINDINGS: Right popliteal fossa: no cyst or other abnormality seen at this time. No organizing fluid collection or mass. IMPRESSION: No evidence for acute process. No cyst or mass identified.
== END | disposition home or self-care (01) ==
LOC: RADUSWWP 09:18
PROVIDERS: ATTEND Student in an Organized Health Care Education/Training Program
DX: M79.89 Other specified soft tissue disorders (principal); R22.41 Localized swelling, mass and lump, right lower limb; M25.571 Pain in right ankle and joints of right foot

== ENCOUNTER → 2024-03-02 | Outpatient (CLI) | payer BC ==
--- NOTE | 2024-03-02 09:43 | XR ---
EXAMINATION TYPE: XR ankle complete bilateral DATE OF EXAM: 03/02/2024 COMPARISON: NONE HISTORY: Pain FINDINGS: Three views of the bilateral ankle demonstrate the ankle mortise to be intact and symmetric. The colby nt spaces are preserved. The osseous structures are intact. Bilateral calcaneal spurs are noted. Pu lmonary artery and soft tissue edema bilaterally. IMPRESSION: 1. No definite acute fracture or dislocation, if symptoms persist follow-up study in 7 to 10 days wou ld be suggested. 2. Soft tissue edema. 3 Bilateral calcaneal spurs.
--- NOTE | 2024-03-02 09:44 | XR ---
EXAMINATION TYPE: XR chest 2V DATE OF EXAM: 03/02/2024 COMPARISON: To 817 TECHNIQUE: PA and lateral views submitted. HISTORY: Swelling FINDINGS: The lungs are clear and there is no pneumothorax, pleural effusion, or focal pneumonia. Heart size normal and no overt failure. Osseous structures intact. IMPRESSION: 1. No acute process.
--- NOTE | 2024-03-02 09:45 | XR ---
EXAMINATION TYPE: XR elbow complete LT DATE OF EXAM: 03/02/2024 COMPARISON: NONE HISTORY: Swelling FINDINGS: Three views of the elbow demonstrate no pathologic joint effusion. The osseous structures are intact . There is no acute fracture or dislocation. IMPRESSION: 1. No acute fracture or dislocation. If symptoms persist follow-up study in 7 to 10 days could be ob tained.
--- NOTE | 2024-03-02 10:15 | XR ---
EXAMINATION TYPE: XR knee limited bilateral DATE OF EXAM: 03/02/2024 COMPARISON: 07/28/2030 HISTORY: Pain TECHNIQUE: Two views are submitted of each knee. FINDINGS: Right knee: Joint spaces are preserved. Osseous structures are intact. No acute fracture seen. Sclerosis invol ving the proximal tibia likely related to bone island. A tiny spur along the upper margin of the irene lla. No erosive changes. Left knee: Joint spaces are preserved. Osseous structures are intact. No acute fracture seen. Sclerosis invol ving the proximal tibia likely related to bone island. No erosive changes. IMPRESSION: 1. No acute process. If symptoms persist consider follow-up MRI..
[2024-03-02 11:01] LABS: Creatine Kinase 132 U/L (26-186); Rheumatoid Factor, Qnt <15 IU/mL (0-15); Uric Acid 4.5 mg/dL (2.9-7.7)
[2024-03-02 11:18] LABS: Hepatitis C IgG Antibody Nonreactive (Nonreactive)
[2024-03-02 16:16] LABS: Cardiolipin Ab IgG Interp Negative (Negative); Cardiolipin Ab IgM Interp Negative (Negative); Cardiolipin IgA Antibody <2.0 U/mL; Cardiolipin IgM Antibody <1.5 U/mL
[2024-03-02 17:15] LABS: Cyclic Citrull Pep IgG Unit <1.5 U/mL (<=3.9); Cyclic Citrullinated Pep IgG Negative
[2024-03-03 10:39] LABS: Angiotensin-1 Converting Enz. 19 U/L (8-52)
[2024-03-03 12:29] LABS: APTT 37 Sec(s) (<43); Dilute Russell Viper Venom 30 Sec(s) (<44)
[2024-03-04 08:23] LABS: Albumin 4.14 g/dL (3.80-4.90); Gamma Globulin 0.82 g/dL (0.70-1.50)
== END | disposition home or self-care (01) ==
LOC: LABWHC1 07:24
PROVIDERS: ATTEND Internal Medicine Rheumatology
DX: M25.522 Pain in left elbow (principal); M77.32 Calcaneal spur, left foot; M77.31 Calcaneal spur, right foot; M25.471 Effusion, right ankle; M79.89 Other specified soft tissue disorders; M25.561 Pain in right knee; M25.562 Pain in left knee; R70.0 Elevated erythrocyte sedimentation rate; R79.82 Elevated C-reactive protein (CRP)
CPT/HCPCS: 36415; 71046; 82164; 82550; 83520; 84165; 84550; 85613; 85652; 85730; 86038; 86140; 86147; 86200; 86235; 86431; 86618; 86803

== ENCOUNTER → 2024-04-11 | Outpatient (CLI) | payer BC ==
[2024-04-11 19:37] LABS: ALT 15 U/L (8-44); AST 16 U/L (13-35); Albumin 4.5 g/dL (3.8-4.9); Albumin/Globulin Ratio 2.05 Ratio (1.60-3.17); Alkaline Phosphatase 60 U/L (41-126); Blood Urea Nitrogen 12.9 mg/dL (9.0-27.0); Calcium 9.4 mg/dL (8.7-10.3); Carbon Dioxide 23.9 mmol/L (21.6-31.8); Chloride 103 mmol/L (96-109); Chol/HDL Ratio 4.17 Ratio; Globulin 2.2 g/dL (1.6-3.3); Glucose 95 mg/dL (70-110); LDL Cholesterol,Calculated 149.3 mg/dL (0.0-131.0); Potassium 4.2 mmol/L (3.5-5.5); Sodium 139 mmol/L (135-145); Total Bilirubin 0.4 mg/dL (0.3-1.2); Total Protein 6.7 g/dL (6.2-8.2)
[2024-04-11 20:18] LABS: Appearance,Urine Turbid (Clear); Bacteria,Urine 2+ (None Seen); Bilirubin,Urine Negative (Negative); Blood,Urine Negative (Negative); Calcium Oxalate Crystals,Urine Present (None Seen); Color,Urine Dark Yellow (Yellow); Ketones,Urine Trace (Negative); Nitrite,Urine Negative (Negative); Specific Gravity,Urine 1.033 (1.001-1.030)
[2024-04-11 21:08] LABS: Basophils # (A) 0.08 X 10*3/uL (0.00-0.10); Basophils % (A) 0.9 %; Eosinophils # (A) 0.26 X 10*3/uL (0.04-0.35); HCT 39.7 % (37.2-46.3); HGB 13.1 g/dL (12.0-15.0); Lymphocytes # (A) 2.54 X 10*3/uL (0.90-5.00); Lymphocytes % (A) 29.8 %; MCH 30.6 pg (27.0-32.0); MCV 92.8 FL (80.0-97.0); Mean Platelet Volume 10.4 FL (9.5-12.2); Monocytes # (A) 0.52 X 10*3/uL (0.20-1.00); Monocytes % (A) 6.1 %; NRBC Per 100 WBC 0 X 10*3/uL (0.00-0.01); Neutrophils % (A) 59.8 %; Platelet Count 266 X 10*3/uL (140-440); RBC 4.28 X 10*6/uL (4.10-5.20); RDW 12.7 % (11.5-14.5); WBC 8.53 X 10*3/uL (4.50-10.00)
== END | disposition home or self-care (01) ==
LOC: LABWHC1 14:49
PROVIDERS: ATTEND Student in an Organized Health Care Education/Training Program
DX: Z00.00 Encounter for general adult medical examination without abnormal findings (principal); R20.0 Anesthesia of skin; R32 Unspecified urinary incontinence; R60.0 Localized edema; R07.89 Other chest pain
CPT/HCPCS: 36415; 80053; 80061; 81001; 82306; 82607; 82746; 83036; 83735; 84439; 84443; 84484; 85025; 85379; 87086